=== PATIENT | male | born 1970 | race Caucasian/White ===

== ENCOUNTER 2018-01-31 17:06 | Emergency (ER) | payer SELFPAY ==
[2018-01-31 17:14] VITALS: BP 118/61; BMI 20.7
--- NOTE | 2018-01-31 19:53 | DR.GENAD ---
HPI - PCP Primary Care Physician: KIERSTEN - HPI Comment HPI Comment: HISTORY BELOW. - Complaint/Symptoms Chief Complaint Doctors Comments: INJURY LEFT LOWER EXTREMITY ONE WEEK AGO WITH PAIN IN THIGH AREA. NOTICE BRUISING 5 DAYS AGO AN D INCREASING PAIN. FEEL KNOT IN AREA NOW. Chief Complaint:: PATIENT STATED THAT HE HURT HIS LEFT LEG LAST WEEK AND NOW IT IS SWELLING AND PAINFUL. PATIENT STATED THAT HE JUMPED UP ON FLAT SURFACE WHEN A WELL EXPLODED AND HURT A GISELLE IN HIS YARD. HE STATED THAT HE LANDED FLAT FOOT. - Nurses notes reviewed Nurses Notes Review: Yes - Source History Provided: Patient - Mode of Arrival Mode of Arrival: Ambulatory - Timing Onset of Chief Complaint: 01/24/18 Came on: Suddenly - Duration Duration: Constant Duration: Days - Severity Severity: Moderate PMH - PMH Past Medical History: No Past Surgical History: Yes Surgical History: Ortho Surgery - Family History History of Family Medical Conditions: Yes Family Medical History: Diabetes Mellitus, Cancer, Coronary Artery Disease - Social History Does patient currently use any type of tobacco product: Yes Have you used tobacco products in the last 12 months: Yes Type of Tobacco Use: Cigarettes Alcohol Use: Occasionally Do you use any recreational Drugs:: No Lives With: Family Lives Where: Home - infectious screening In the last 2 months have you had wt loss of >10#?: NO Have you had fever, night sweats or hemotysis?: No Have you traveled outside the country in the last 6 months?: No Isolation: Standard ROS - Review of Systems Constitutional: No Symptoms Reported Eyes: No Symptoms Reported ENTM: No Symptoms Reported Respiratoy: No Symptoms Reported Cardiovascular: No Symptoms Reported Gastrointestinal/Abdominal: No Symptoms Reported Genitourinary: No Symptoms Reported Neurological: No Symptoms Reported Musculoskeletal: Left, Leg (THIGH) Integumentary: Bruises (LT THIGH.) Hematologic/Lymphatic: No Symptoms Reported Endocrine: No Symptoms Reported All Other Systems: Reviewed and Negative PE - Vital Signs Vitals: Temperature 98.5 F Pulse Rate 78 Respiratory Rate 18 Blood Pressure 118/61 O2 Sat by Pulse Oximetry 98 - General Limitations: No Limitations General Appearance: Alert - Head Head Exam: Normal Inspection - Eyes Eye exam: Normal Appearance - ENT ENT Exam: Normal External Ear Exam External Ear Exam: Normal External Inspection TM/Canal Exam: Bilateral Normal Nose Exam: Normal Nose Exam Mouth Exam: Normal Inspection Throat Exam: Normal Inspection - Neck Neck Exam: Trachea Midline - Chest Chest Inspection: Symmetric Chest Wall Rise - Respiratory Respiratory Exam: Normal Lung Sounds Bilat Respiratory Exam: Bilateral Clear to Auscultation - Cardiovascular Cardiovascular Exam: Regular Rate, Normal Rhythm, Normal Heart Sounds - Abdominal Exam Abdominal Exam: Normal Bowel Sounds, Soft. negative: Tenderness - Extremities Extremities Exam: Tenderness (LEFT THIGH BRUISED AND TENDER.) - Back Back Exam: Normal Inspection - Neurologic Neurological Exam: Alert, Oriented X3 - Psychiatric Psychiatric Exam: Normal Affect, Normal Mood - Skin Skin Exam: Erythema MDM - Additional Information Additional Information Obtained From: Family - Differential Diagnosis Differential Diagnosis: DVT, MUSCLE STRAIN, THIGH CONTUSION, FRACTURE FEMUR. Course - Treatment Treatment: SEE ORDERS. - Education/Counseling Education/Counseling: Patient, Family, Education Educated On: Diagnosis, Needs for Follow Up ROR - Labs Reviewed Laboratory Results Reviewed?: Yes Laboratory: D-Dimer 263 ng/mL (0-400) 01/31/18 20:00 - XRAY XRAY Interpreted by: Radiologist XRAY Findings: REPORT DISCUSS WITH PATIENT AND HIS FAMILY. - Diagnosis Discharge Problem: Musculoskeletal pain - Discharge Plan Disposition: 01 HOME, SELF-CARE Condition: Stable Prescriptions: Cyclobenzaprine HCl [FLEXERIL 10 MG *] 10 mg PO TID PRN #20 tab PRN Reason: Ibuprofen [MOTRIN TAB 800 MG *] 800 mg PO Q8H PRN #30 tab PRN Reason: Pain/Inflammation - Follow ups/Referrals Follow ups/Referrals: [facility],None [Primary Care Provider] - 3 days - Instructions Instructions: Muscle Pain, Adult, Musculoskeletal Pain Additional Instructions: RETURN TO ED IF WORSE.
--- NOTE | 2018-01-31 20:15 | RAD ---
Indication: Pain Exam: Left femur series. Technique: AP and lateral views Findings: The femur is intact. No fracture or dislocation is seen. The joint spaces are intact. The b ones are well mineralized. The soft tissues are normal. Impression: No abnormality seen. Reported By:
[2018-01-31] MEDS ORDERED: TORADOL TAB PO ONE ×2 (20:51→20:54)
[2018-01-31] MEDS ORDERED: FLEXERIL TAB 10 MG PO ONE (20:52)
[2018-01-31] MEDS ORDERED: FLEXERIL TAB 10 MG ONE (20:54)
== END 2018-01-31 20:57 | disposition home or self-care (01) ==
LOC: ER 17:19
DX: M79.1 Myalgia (principal)
CPT/HCPCS: 36415; 73552; 85378; 99283